=== PATIENT | male | born 1995 | race African-American/Black ===

== ENCOUNTER 2021-01-23 12:14 | Observation (INO) | payer MEDICARE, OTHER, MEDICAID ==
[~2021-01-23] VITALS: Wt 64.0 kg
[2021-01-23 12:30] LABS: HEMATOCRIT 42.6 % (42.0-52.0); HEMOGLOBIN 13.9 g/dl (13.5-18.0); MEAN CELL VOLUME 96 fl (80.0-100.0); MEAN CORPUSCULAR HEMOGLOBIN 31 pg (27.0-31.0); MEAN CORPUSCULAR HGB CONC 33 g/dl (33.0-37.0); MEAN PLATELET VOLUME 13.9 fl (7.4-10.4); PLATELET COUNT 204 K/mm3 (130-400); RED BLOOD COUNT 4.44 M/mm3 (4.20-5.60)
[2021-01-23 12:50] LABS: ALBUMIN 4.6 gm/dL (3.5-5.0); BILIRUBIN,TOTAL 0.2 mg/dL (0.2-1.2); C-REACTIVE PROTEIN 0.07 mg/dL (0.00-0.50); CALCIUM 9.7 mg/dL (8.4-10.2); CREATININE, serum 1.23 mg/dL (0.72-1.25); POTASSIUM 4.1 mmol/L (3.5-4.5); TOTAL PROTEIN 8.5 gm/dL (6.2-8.1)
[2021-01-23 12:51] LABS: COLLECTION METHOD CLEAN CATCH
[2021-01-23 13:00] LABS: PLATELET ESTIMATE NORMAL (NORMAL)
[2021-01-23 13:02] LABS: LYMPHOCYTE 7 % (20.0-51.0); NEUTROPHILS 85 % (42.0-75.2)
[2021-01-23 13:04] LABS: MUCOUS Present /lpf; PH 5 (5-8); SQUAMOUS EPITHELIAL None Seen /hpf; URINE APPEARANCE Hazy; URINE BACTERIA Rare /hpf; URINE BILIRUBIN Negative (NEGATIVE); URINE BLOOD 2+ (NEGATIVE); URINE COLOR Straw; URINE GLUCOSE Negative (NEGATIVE); URINE KETONE Negative (NEGATIVE); URINE LEUKOCYTE ESTERASE Negative (NEGATIVE); URINE NITRATE Negative (NEGATIVE); URINE PROTEIN(semi-quant) 2+ (NEGATIVE); URINE UROBILINOGEN Negative (NEGATIVE)
[2021-01-23 13:05] LABS: TRICYCLIC ANTIDEPRESS URINE NEGATIVE
[2021-01-23 13:11] LABS: PROLACTIN 89.2 ng/mL (3.46-19.40)
[2021-01-23] MEDS ORDERED: TRILEPTAL SU60 MG/ML PO ×3 (15:31→21:47)
[2021-01-23] MEDS ORDERED: ONFI2.5 MG/ML PO ×2 (15:31→19:52)
[2021-01-23] MEDS ORDERED: KEPPRA SUSP100 MG/ML PO ×2 (15:32→21:43)
[2021-01-23] MEDS ORDERED: NIZORAL CR 30GM TOP (15:34)
[2021-01-23] MEDS ORDERED: LOPROX TOP (15:34)
[2021-01-23] MEDS ORDERED: DEPAKENE250 MG PO ×3 (15:35→15:36)
[2021-01-23] MEDS ORDERED: KLONOPIN WAFERS1 MG PO ×2 (15:37→19:53)
[2021-01-23 19:05] VITALS: BP 125/94; PULSE 101; TEMP 99.4
[2021-01-23] MEDS ORDERED: DEPAKENE 250 MG/1 ML PO ×3 (19:49→19:50)
--- NOTE | 2021-01-23 21:09 | NUR ---
Report received from day shift nurse around 1900. PIECE DYE WORKER staff was sitting with patient due to patient getting up and moving around. Unable to redirect. Patient non-verbal. Dr. Collins in to see patient. Dr. Collins able to get medications list, and updated in med rec. Wanted to restart all home medications, but unsure about substitutions. JOÃO Bai notified, and stated she would look at list and call pharmacy. Patient has INT to right forearm, and left forearm. IV fluids started per orders. Patient resting in bed with call light within reach at this time. LS CTA. HRR. Telemetry in place. Capillary refill less than 3 seconds. Non-tenting skin turgor. BSAx4. Abdomen soft, flat. Patient incontinent of bowel. Has indwelling lang catheter with clear yellow urine output. No edema. In bed with call light within reach. Bed alarm on. Seizure precautions in place. Spoke with Fabi from the [facility], and is working on trying to get staff member to sit with patient. At this time, [facility] PCT is sitting with patient for safety.
[2021-01-24 00:06] VITALS: BP 130/71; PULSE 120; TEMP 99.7
[2021-01-24 04:09] VITALS: BP 128/64; PULSE 110; TEMP 99.1
--- NOTE | 2021-01-24 05:43 | NUR ---
Patient's medications mixed with milk shake ([facility] stated this is how he takes his medications). Patient drank some, but not all of milk shake. Unsure how much medication patient took. Patient has been resting in bed. Call light within reach. Seizure precautions in place. Bed alarm on. Indwelling lang catheter present, draining clear yellow urine. Incontinent of bowel, cares provided.
[2021-01-24 06:49] LABS: BASO % 0.3 % (0.0-2.0); GRAN # 9.4 K/mm3 (1.4-6.5); GRAN % 80.5 % (42.2-75.2); HEMOGLOBIN 12.3 g/dl (13.5-18.0); LYMPH % 8.7 % (20.0-51.0); MEAN CELL VOLUME 92 fl (80.0-100.0); MEAN CORPUSCULAR HEMOGLOBIN 32 pg (27.0-31.0); MEAN CORPUSCULAR HGB CONC 35 g/dl (33.0-37.0); MONO # 1.2 K/mm3 (0.1-0.6); MONO % 10.2 % (1.7-9.3); PLATELET COUNT 128 K/mm3 (130-400); RED BLOOD COUNT 3.87 M/mm3 (4.20-5.60); REDCELL DISTRIBUTION WIDTH-CV 13.1 % (11.5-14.5)
[2021-01-24 06:57] LABS: HEMATOCRIT 35.5 % (42.0-52.0)
[2021-01-24 07:10] LABS: ALBUMIN 3.7 gm/dL (3.5-5.0); CALCIUM 9.2 mg/dL (8.4-10.2); CREATININE, serum 0.99 mg/dL (0.72-1.25); MAGNESIUM 1.8 mg/dL (1.6-2.6); PHOSPHOROUS 3.1 mg/dL (2.3-4.7); POTASSIUM 3.8 mmol/L (3.5-4.5)
[2021-01-24 07:58] VITALS: BP 118/74; PULSE 91; TEMP 97.7; TEMP 99
[2021-01-24 11:55] VITALS: BP 123/66; PULSE 98; TEMP 99
[2021-01-24 16:00] VITALS: BP 122/70; PULSE 73; TEMP 98
[2021-01-24 20:46] VITALS: BP 134/73; PULSE 86; TEMP 98.2
--- NOTE | 2021-01-24 21:24 | NUR ---
Norma, co-gaurdian for patient called for update. Voiced understanding that update couldn't be given at that time due to not being listed as a co-guardian on chart, and that she did not have the patient's pin number. Called Melyssa, listed as garjdian on chart. Updated on patient, as she had not been called and updated at all since hospitalization. Verrified that Norma is co-guardian, and ok with her receiving updates as well. Stated that she would call and update Norma. Questions answered. Requested that [facility] send copy of DPOA/Guardianship paperwork. Norma: [phone] Melyssa: [phone]
--- NOTE | 2021-01-24 21:55 | NUR ---
Patient assessed. Peripheral IV to right forearm, with fluids running per orders. Refused to take oral medications. Received IV medications per orders. Telemetry in place: sinus dysrhythmia. LS CTA. No edema. High fall risk precautions in place. Food and fluids encouraged. In bed with call light within reach. Bed alarm on.
--- NOTE | 2021-01-24 22:35 | NUR ---
Spoke to JOÃO Bai regarding lang catheter. Patient up moving around. Has started to pull at lang catheter. Ok to D/C lang. Taken out at this time. Perineal hygiene care provided before and after removal.
[2021-01-25 00:20] VITALS: BP 122/75; PULSE 53; TEMP 99.4
--- NOTE | 2021-01-25 05:37 | NUR ---
Patient had been up most of shift. Seems to be resting at this time: in bed with eyes closed, respirations even and unlabored. Continues on IV fluids as ordered. Did stop fluids for short time when patient kept pulling on tubing. JOÃO Bai had been notified. High fall risk precautions in place. Bed alarm on.
--- NOTE | 2021-01-25 06:30 | NUR ---
PT IS FROM A CORRECTION, WITH A HISTORY OF SIEZURES. THIS PATIENT HAS BEEN VERBAL WITH SOME WORDS, AND ABLE TO ADDRESS IMMEDIATE NEEDS. PT IS CURRENTLY NPO FOR MRI THAT IS PLANNED FOR 1429 WITH SEDATION.
[2021-01-25 06:39] LABS: BASO % 0.6 % (0.0-2.0); GRAN # 4.8 K/mm3 (1.4-6.5); GRAN % 67.8 % (42.2-75.2); HEMATOCRIT 37.7 % (42.0-52.0); HEMOGLOBIN 12.7 g/dl (13.5-18.0); LYMPH # 1.6 K/mm3 (1.2-3.4); LYMPH % 21.9 % (20.0-51.0); MEAN CELL VOLUME 94 fl (80.0-100.0); MEAN CORPUSCULAR HEMOGLOBIN 32 pg (27.0-31.0); MEAN CORPUSCULAR HGB CONC 34 g/dl (33.0-37.0); MEAN PLATELET VOLUME 13.8 fl (7.4-10.4); MONO # 0.7 K/mm3 (0.1-0.6); MONO % 9.6 % (1.7-9.3); PLATELET COUNT 125 K/mm3 (130-400); RED BLOOD COUNT 4.02 M/mm3 (4.20-5.60); REDCELL DISTRIBUTION WIDTH-CV 13.2 % (11.5-14.5)
[2021-01-25 07:08] LABS: ALBUMIN 3.7 gm/dL (3.5-5.0); CALCIUM 9.6 mg/dL (8.4-10.2); CREATININE, serum 0.85 mg/dL (0.72-1.25); MAGNESIUM 1.6 mg/dL (1.6-2.6); PHOSPHOROUS 3.3 mg/dL (2.3-4.7); POTASSIUM 4.2 mmol/L (3.5-4.5)
[2021-01-25 07:40] VITALS: BP 114/62; PULSE 68; TEMP 97.3
[2021-01-25 12:36] VITALS: BP 135/85; PULSE 90; TEMP 97.5
--- NOTE | 2021-01-25 12:38 | NUR ---
SPOKE WITH RN AND PATIENT IS HAVING AN SEDATIVE MRI TODAY AT 0215 AND IT WAS ALSO THE ONLY AVALIABLE TIME FOR THE EEG. WILL PERFORM EEG TOMORROW, RN NOTIFIED.
--- NOTE | 2021-01-25 14:17 | NUR ---
It Intern contacted patient's sister/Guardian, Melyssa (ph#[phone]) to complete intake as patient is mostly non verbal. Melyssa advised she and her sister, Norma (ph#[phone]) are co-guardians for patient who lives in a [facility] half-way here in [place]. Melyssa advised they are from [place] and patient was in a half-way in [place] until the agency he was with shut down their residential services. Melyssa reported that [place] was the closest location that had Residential openings so they moved patient to [place] in December. Melyssa advised [facility] is working on setting up patient with a local primary care physician. Patient has medications administered to him by [facility] staff and also receives assistance with all ADLs. Melyssa denies any DME usage. Plan is for patient to return to [facility] upon discharge. BERNARDO contacted patient's rehabilitation case coordinator, Emily Galarza (ph#[phone]) to provide update. Emily advised she will email patient's guardianship documents to BERNARDO. BERNARDO then contacted Debby [facility] Campground Manager (ph#[phone], fax#[phone]) and faxed clinical updates. BERNARDO advised Debby that patient may be ready for discharge tomorrow. Discharge Plan: [facility]
--- NOTE | 2021-01-25 16:07 | NUR ---
PT HAS HAD UNEVENTFUL DAY. REMAINED NPO UNTIL HE HAD HIS MRI. RESULTS ARE IN AND PROVIDER NOTIFIED. PT IS NOW EATING, AND SITTING UP IN BED. REMAINS MOSTLY NON-VERBAL, BUT DOES USE ONE WORD SENTENCES.
[2021-01-25 16:30] VITALS: BP 140/67; PULSE 56; TEMP 97.8
--- NOTE | 2021-01-25 16:51 | NUR ---
AFTER PATIENT RETURNED FROM CT, THE PATIENT WAS SLIGHTLY NAUSEATED. THE PATIENT ATE SOME PUDDING AND DRANK SOME APPLE JUICE AND FELT MUCH BETTER.
[2021-01-25 19:24] VITALS: BP 115/71; PULSE 54
[2021-01-25 22:23] VITALS: BP 114/71; PULSE 77
--- NOTE | 2021-01-26 00:33 | NUR ---
Received report from JENN Patel. Patient resting in bed quietly. No acute distress noted. Call light in reach. Bed alarms on. Seizure precaution maintained. Will continue to monitor.
[2021-01-26 04:37] VITALS: BP 118/52; PULSE 57
--- NOTE | 2021-01-26 06:32 | NUR ---
Right forearm IV site infiltrated around 2 am. Removed IV from right forerarm. Patient refusing IV insertion. Patient also has been refusing heparin sub-q injection last night. Patient has been pushing away nurse hands and refusing any needle insertion. Called JOÃO Bai and updated. Per JOÃO Bai, let him rest for now and try to put IV in the day time.
--- NOTE | 2021-01-26 06:35 | NUR ---
Pt. progressing w/ plan of care. Pt. resting in bed w/ eyes closed. Call light and belongings in reach, bed alarm on.
[2021-01-26 07:13] LABS: BASO % 0.5 % (0.0-2.0); EOS % 0.3 % (0-4.0); GRAN # 3.8 K/mm3 (1.4-6.5); GRAN % 65.5 % (42.2-75.2); HEMATOCRIT 37.8 % (42.0-52.0); HEMOGLOBIN 13.2 g/dl (13.5-18.0); LYMPH # 1.4 K/mm3 (1.2-3.4); MEAN CELL VOLUME 92 fl (80.0-100.0); MEAN CORPUSCULAR HEMOGLOBIN 32 pg (27.0-31.0); MEAN CORPUSCULAR HGB CONC 35 g/dl (33.0-37.0); MEAN PLATELET VOLUME 14.1 fl (7.4-10.4); MONO # 0.6 K/mm3 (0.1-0.6); MONO % 9.5 % (1.7-9.3); PLATELET COUNT 131 K/mm3 (130-400); RED BLOOD COUNT 4.11 M/mm3 (4.20-5.60)
[2021-01-26 07:31] LABS: CALCIUM 9.7 mg/dL (8.4-10.2); CREATININE, serum 0.85 mg/dL (0.72-1.25); MAGNESIUM 1.7 mg/dL (1.6-2.6); POTASSIUM 3.9 mmol/L (3.5-4.5)
[2021-01-26 08:00] VITALS: BP 116/62; PULSE 99; TEMP 98
--- NOTE | 2021-01-26 09:55 | NUR ---
Pt. progressing w/ plan of care. Pt. refused PO medications this AM, pt. was getting EEG this past hour. Plan to replace peripheral IV today, last night pt. lost IV access. Pt. is pleasant and interactive this AM. Unable to assess orientation due to pt.'s lack of speaking.
--- NOTE | 2021-01-26 10:32 | NUR ---
Patient moving through out entire EEG, having head off pillow, moving side to side and talking.
[2021-01-26] MEDS ORDERED: MUCINEX DM 60 M1 TER PO (10:52)
[2021-01-26] MEDS ORDERED: LORAINT PO (10:53)
--- NOTE | 2021-01-26 11:36 | NUR ---
This RN attempted again to get pt. to take his medications, playing music he likes per reccomendations of rrt Fabi on the telephone. Pt. still was not willing to take his medications, pushing this RN's arm away when handing them to the patient. JOÃO Mejía made aware. Cutlery Grinder Fabi reports she plans to come see the patient today, will reattempt to administer pt.'s medications when she comes to visit. Pt. resting in bed comfortably at this time, no s/s distress. Seizure precautions remain in place, bed alarm on.
[2021-01-26 12:00] VITALS: BP 120/65; PULSE 95; TEMP 97.9
--- NOTE | 2021-01-26 15:00 | NUR ---
[facility]. Pt.'s tele removed, IV was removed last night on the sample tailor. Pt. picked up and wheeled out of the hospital using wheelchair w/ penitentiary staff member. Discharge paperwork provided.
--- NOTE | 2021-01-26 15:09 | NUR ---
Patient is ready to discharge back to [facility] today. BERNARDO notified Debby, Director Of Business Development and faxed discharge orders. Debby advised that patient would be picked up this afternoon. BERNARDO contacted patient's Guardian, Melyssa to notify her of discharge. Melyssa requested a phone call from patient's RN, Luna. BERNARDO followed up with Luna who advised she would call. BERNARDO followed up with Debby on who they would like to set patient up with for primary care. Debby advised they would like to set patient up with Dr. Oneal. Icebox ManShalini advised she called Dr. Oneal's office and they are not taking new patients. BERNARDO followed up again with Debby who advised she would try to have the medical coordinator at [facility], Fabi give BERNARDO a call. BERNARDO updated Shalini equal opportunity officer. Patient discharged before appointment could be secured. Discharge Plan: [facility]
--- NOTE | 2021-01-28 11:54 | NUR ---
RM has made 2 attempts to contacted reported DPOA - Sister,Norma Sarkar [phone]. I have left messages to call me and contact information was provided. Yenni Quesada MSN, DIRECTOR DIGITAL ADVERTISING- Inventory Checker
[2021-01-30 10:10] LABS: TRILEPTAL <1 mcg/mL (10 - 35)
== END 2021-01-26 15:00 | disposition home or self-care (01) ==
LOC: COL.ER 12:14 → EDBD 12:15 → MEDICAL 14:38
PROVIDERS: Family Medicine; Physician Assistant; Psychiatry & Neurology Neurology; ADMIT Internal Medicine
DX: G40.901 Epilepsy, unspecified, not intractable, with status epilepticus (principal); D72.829 Elevated white blood cell count, unspecified; E83.42 Hypomagnesemia; I48.91 Unspecified atrial fibrillation; F89 Unspecified disorder of psychological development; Z79.899 Other long term (current) drug therapy; Z20.822 Contact with and (suspected) exposure to COVID-19
CPT/HCPCS: 99223-AI; 99232-AI; 99233-AI; 99239; A9585; G0378; J0456; J0696; J1644; J1953; J3475; J7030; J7050

== ENCOUNTER 2021-01-28 08:16 | Emergency (ER) | payer MEDICARE, OTHER ==
[~2021-01-28] VITALS: Ht 167.6 cm; Wt 59.1 kg
[~2021-01-28 08:16] MED LIST: DEPAKENE 250 MG/1 ML PO; DEPAKENE250 MG PO; KEPPRA SUSP100 MG/ML PO; KLONOPIN WAFERS1 MG PO; LOPROX TOP; LORAINT PO; MUCINEX DM 60 M1 TER PO; NIZORAL CR 30GM TOP; ONFI2.5 MG/ML PO; TRILEPTAL SU60 MG/ML PO
[2021-01-28 08:23] VITALS: TEMP 99
[2021-01-28 09:07] LABS: HEMATOCRIT 37.3 % (42.0-52.0); HEMOGLOBIN 12.7 g/dl (13.5-18.0); MEAN CELL VOLUME 90 fl (80.0-100.0); MEAN CORPUSCULAR HEMOGLOBIN 31 pg (27.0-31.0); MEAN CORPUSCULAR HGB CONC 34 g/dl (33.0-37.0); PLATELET COUNT 155 K/mm3 (130-400); RED BLOOD COUNT 4.13 M/mm3 (4.20-5.60); REDCELL DISTRIBUTION WIDTH-CV 12.9 % (11.5-14.5)
--- NOTE | 2021-01-28 09:29 | NUR ---
forestry workers met with Fabi Gay, medical intern at [facility] [phone]. Fabi states that patient moved to their facility on December 18 from [facility] in [place]. Fabi states that her workers told us last week that Dr Oneal was patient's primary care provider, however, she states that Dr Sean Platt ([place]) will remain patient's primary care provider. Worker met with patient's nurse and Dr Pastrana and provided the above information.
[2021-01-28 09:30] LABS: BAND 2 % (0-10); LYMPHOCYTE 6 % (20.0-51.0); NEUTROPHILS 86 % (42.0-75.2); PLATELET ESTIMATE NORMAL (NORMAL)
[2021-01-28 09:40] LABS: PROLACTIN 7.7 ng/mL (3.46-19.40)
[2021-01-28 09:59] LABS: ALBUMIN 4.5 gm/dL (3.5-5.0); BILIRUBIN,TOTAL 0.3 mg/dL (0.2-1.2); CREATININE, serum 0.86 mg/dL (0.72-1.25); POTASSIUM 3.9 mmol/L (3.5-4.5); TOTAL PROTEIN 7.6 gm/dL (6.2-8.1)
--- NOTE | 2021-01-28 10:16 | NUR ---
Senior Accountant receieved a message from patient's guardian, Norma who advised she was unhappy with the care patient received during his latest hospitalization and would like him to be transferred to a different hospital as he is on the way to the ED now. BERNARDO notified Yenni with Risk Management.
[2021-01-28 13:10] VITALS: BP 111/95; PULSE 87
== END 2021-01-28 13:10 | disposition home or self-care (01) ==
LOC: COL.ER 08:16
PROVIDERS: Family Medicine
DX: G40.909 Epilepsy, unspecified, not intractable, without status epilepticus (principal); J18.9 Pneumonia, unspecified organism; R41.82 Altered mental status, unspecified; Z79.899 Other long term (current) drug therapy
CPT/HCPCS: J1953

== ENCOUNTER 2021-02-17 07:00 | Observation (INO) | payer MEDICARE, OTHER ==
[~2021-02-17] VITALS: Ht 170.2 cm; Wt 59.1 kg
[2021-02-17 08:14] LABS: HEMATOCRIT 39.2 % (42.0-52.0); HEMOGLOBIN 12.7 g/dl (13.5-18.0); MEAN CELL VOLUME 96 fl (80.0-100.0); MEAN CORPUSCULAR HEMOGLOBIN 31 pg (27.0-31.0); MEAN CORPUSCULAR HGB CONC 32 g/dl (33.0-37.0); MEAN PLATELET VOLUME 12.7 fl (7.4-10.4); PLATELET COUNT 199 K/mm3 (130-400); RED BLOOD COUNT 4.09 M/mm3 (4.20-5.60); REDCELL DISTRIBUTION WIDTH-CV 13.4 % (11.5-14.5)
[2021-02-17 08:28] LABS: COLLECTION METHOD CATHETER
[2021-02-17 08:30] LABS: ALANINE AMINOTRANSFERASE 25 U/L (0-55); ALBUMIN 4.4 gm/dL (3.5-5.0); ALKALINE PHOSPHATASE 58 U/L (40-150); ANION GAP 17 mmol/L (7-16); AST,SGOT 21 U/L (5-34); BILIRUBIN,TOTAL 0.2 mg/dL (0.2-1.2); BLOOD UREA NITROGEN 7 mg/dL (9-21); CARBON DIOXIDE 17 mmol/L (22-29); CHLORIDE 104 mmol/L (98-107); CREATININE, serum 1.23 mg/dL (0.72-1.25); GLUCOSE 185 mg/dL (70-99); POTASSIUM 4.4 mmol/L (3.5-4.5); SODIUM 138 mmol/L (136-145); TOTAL PROTEIN 8.1 gm/dL (6.2-8.1)
[2021-02-17 08:40] LABS: MUCOUS Present (NOT PRESENT); PH 5 (5-8); SQUAMOUS EPITHELIAL 0-2 /hpf (0-10); URINE APPEARANCE Clear (CLEAR/HAZY); URINE BACTERIA Rare (NONE SEEN); URINE BILIRUBIN Negative (NEGATIVE); URINE BLOOD 2+ (NEGATIVE); URINE COLOR Straw (YELLOW); URINE GLUCOSE 1+ (NEGATIVE); URINE KETONE Negative (NEGATIVE); URINE LEUKOCYTE ESTERASE Negative (NEGATIVE); URINE NITRATE Negative (NEGATIVE); URINE PROTEIN(semi-quant) 1+ (NEGATIVE); URINE RBC 0-2 /hpf (0-2); URINE UROBILINOGEN Negative (NEGATIVE)
[2021-02-17 08:43] LABS: BAND 8 % (0-10); LYMPHOCYTE 2 % (20.0-51.0); MYELOCYTE 1 % (0-0); NEUTROPHILS 85 % (42.0-75.2); PLATELET ESTIMATE NORMAL (NORMAL)
[2021-02-17 08:47] LABS: VALPROIC ACID (DEPAKENE) < 12.5 ug/mL (43.5-90.5)
[2021-02-17] MEDS ORDERED: DEPAKENE250 MG PO (10:33)
--- NOTE | 2021-02-17 14:28 | NUR ---
PT ARRIVED TO ROOM, UP WANDERING ROOM WITH TECH NEXT TO HIM, PT HAS UNSTEADY GAIT, APPLE JUICE BROUGHT IN FOR PATIENT, ASSESSMENT PERFORMED, PT NONVERBAL AT THIS TIME, UNABLE TO OBTAIN MOST INFORMATION NEEDED FOR ADMISSION. SEIZURE PRECAUTIONS IN PLACE, PT HIGH FALL RISK,
[2021-02-17 16:00] VITALS: BP 124/59; PULSE 121; TEMP 97.4
--- NOTE | 2021-02-17 18:02 | NUR ---
PT HAD LARGE SOFT FORMED BM, IV MEDICATIONS GIVEN, ORDERING HOUSE TRAY FOR PT. PERICARE PERFORMED AND SHEETS CHANGED.
[2021-02-17 20:06] VITALS: BP 130/64; PULSE 69; TEMP 98.6
--- NOTE | 2021-02-17 21:30 | NUR ---
Patient is in bed with SECURITY INCIDENT HANDLER at bedside. Pt has been very active around the room and in the halls. Pt no not speaks. Denies to take food mixed with medications. Incontinent for both. A couple of changes done already for BM. Pt has tachycardia. No signs of physical pain. Seizure precautions inplace. Assessment completed. IV infusing. Pt in room in front of nursing station. Bed alarm on.
--- NOTE | 2021-02-17 22:45 | NUR ---
Patient standed up pulling his IV out while infusing medication. IV discontinue and started a new one in left forearm. Restarted infusion. Linens changed, hygiene provided.
[2021-02-18 00:24] VITALS: BP 127/60; PULSE 88; TEMP 98.5
[2021-02-18 04:21] VITALS: BP 120/67; PULSE 99; TEMP 97.9
--- NOTE | 2021-02-18 06:21 | NUR ---
PT has had active episodes where he wants to be walking around. He had a period of sleeping. Right now he is awake and walking in the room. He asked for food, sandwich provided, he did not eat it. Pt received IV medications. No seizures along the night. Report will be given to day shift RN.
[2021-02-18 07:06] LABS: BASO # 0.1 K/mm3 (0.0-0.2); BASO % 0.5 % (0.0-2.0); EOS % 0.1 % (0-4.0); GRAN # 8.8 K/mm3 (1.4-6.5); GRAN % 77.3 % (42.2-75.2); HEMATOCRIT 40.7 % (42.0-52.0); HEMOGLOBIN 13.3 g/dl (13.5-18.0); LYMPH # 1.6 K/mm3 (1.2-3.4); LYMPH % 14.3 % (20.0-51.0); MEAN CELL VOLUME 93 fl (80.0-100.0); MEAN CORPUSCULAR HEMOGLOBIN 31 pg (27.0-31.0); MEAN CORPUSCULAR HGB CONC 33 g/dl (33.0-37.0); MONO # 0.9 K/mm3 (0.1-0.6); MONO % 7.5 % (1.7-9.3); PLATELET COUNT 177 K/mm3 (130-400); RED BLOOD COUNT 4.36 M/mm3 (4.20-5.60); REDCELL DISTRIBUTION WIDTH-CV 13.2 % (11.5-14.5)
[2021-02-18 07:23] LABS: CALCIUM 10.4 mg/dL (8.4-10.2); CREATININE, serum 0.87 mg/dL (0.72-1.25); POTASSIUM 3.8 mmol/L (3.5-4.5)
[2021-02-18 08:36] VITALS: BP 100/72; PULSE 92; TEMP 98.1
--- NOTE | 2021-02-18 10:18 | NUR ---
Patient is a re-admit from 01/26. Patient is non verbal and per hospitalist is ready for dc today. Patient resides at [facility] here in [place]. Patient has no DME needs and PCP is Dr. Palomo. Hospitalist spoke with JOSSELINE Ragsdale this morning regarding the patient's care and discharge plan. Patient willretrn back to [facility] later today. SW contact the patient's protective services case worker Emily ([phone]) and notified her of discharge today. Emily reports that they have been trying to establish a family meeting with the patient's guardians for a few weeks to talk about goals of care due to the patient refusing his medications and establishing a PCP locally, but at this time have been unsuccessful. Emily reports she will send an email to facility director Debby about the patient dc today. Attempt made to contact Debby by phone ([phone]) and notify of the patient's dc today. Attempt was unsuccessful and message left.
--- NOTE | 2021-02-18 11:20 | NUR ---
PT HAS BEEN ACTIVE IN ROOM ALL MORNING. MORNING MEDICATIONS GIVEN. SHIFT ASSESSMENT COMPLETED. PT HAS HAD NO SEIZES/SEIZURE-LIKE ACTIVITY WITNESSES BY STAFF ON THIS SHIFT. DOES NOT RESPOND TO QUESTIONS. WILL CONTINUE TO MONITOR.
--- NOTE | 2021-02-18 11:32 | NUR ---
Clinical updats and discharge orders faxed to [facility]. Haven't heard back from Debby so i contacted the patient's hospice case manager Emily to inform her. She will reach out to the facility to speak with Debby directly.
[2021-02-18 12:45] VITALS: BP 135/112; PULSE 96; TEMP 98.1
--- NOTE | 2021-02-18 15:13 | NUR ---
Attempt made to contact Emily and Debby and was unsuccessful. Faxed patient's discharges orders to [facility] with the note of being ready for discharge. No phone calls were returned by the staff at [facility]. While attempting to contact Emily, a facility member showed up to grain picker the patient. No notification was given and i notified the [facility] staff member that she will have to wait a little bit due to us not knowing she was coming at this time and the patient wasn't ready. Staff member verbalized her understanding and the patient's RN notified.
== END 2021-02-18 15:13 | disposition home or self-care (01) ==
LOC: COL.ER 07:00 → MEDICAL 10:17
PROVIDERS: Personal Emergency Response Attendant; Physician Assistant; ADMIT Internal Medicine
DX: G40.911 Epilepsy, unspecified, intractable, with status epilepticus (principal); G40.909 Epilepsy, unspecified, not intractable, without status epilepticus; D72.829 Elevated white blood cell count, unspecified; Z91.19 Patient's noncompliance with other medical treatment and regimen; Z20.822 Contact with and (suspected) exposure to COVID-19; Z79.899 Other long term (current) drug therapy
CPT/HCPCS: G0378; J1650; J1953; J7030

== ENCOUNTER 2021-03-26 12:06 | Emergency (ER) | payer MEDICARE, OTHER ==
[~2021-03-26] VITALS: Ht 165.1 cm; Wt 50.0 kg
[2021-03-26 12:07] VITALS: TEMP 98.9
[2021-03-26 13:30] LABS: BASO % 0.2 % (0.0-2.0); EOS % 0.1 % (0.0-4.0); GRAN # 9.4 K/mm3 (1.4-6.5); HEMATOCRIT 43.3 % (42.0-52.0); HEMOGLOBIN 14.2 g/dl (13.5-18.0); LYMPH # 0.8 K/mm3 (1.2-3.4); LYMPH % 7.2 % (20.0-51.0); MEAN CELL VOLUME 95 fl (80.0-100.0); MEAN CORPUSCULAR HEMOGLOBIN 31 pg (27-31); MEAN CORPUSCULAR HGB CONC 33 g/dl (33.0-37.0); MEAN PLATELET VOLUME 13.9 fl (7.4-10.4); MONO # 0.4 K/mm3 (0.1-0.6); MONO % 3.9 % (1.7-9.3); PLATELET COUNT 164 K/mm3 (130-400); RED BLOOD COUNT 4.58 M/mm3 (4.20-5.60); REDCELL DISTRIBUTION WIDTH-CV 13.2 % (11.5-14.5)
[2021-03-26 13:46] LABS: ALANINE AMINOTRANSFERASE 25 U/L (0-55); ALBUMIN 4.5 gm/dL (3.5-5.0); ALKALINE PHOSPHATASE 67 U/L (40-150); ANION GAP 28 mmol/L (7-16); AST,SGOT 27 U/L (5-34); BILIRUBIN,TOTAL 0.2 mg/dL (0.2-1.2); BLOOD UREA NITROGEN 6 mg/dL (9-21); CHLORIDE 104 mmol/L (98-107); GLUCOSE 173 mg/dL (70-99); POTASSIUM 4.7 mmol/L (3.5-4.5); SODIUM 140 mmol/L (136-145); TOTAL PROTEIN 8.5 gm/dL (6.2-8.1)
[2021-03-26 14:06] LABS: ALCOHOL(ethanol),MEDICAL < 10 mg/dL (0-10)
[2021-03-26 14:07] LABS: CARBON DIOXIDE 8 mmol/L (22-29)
[2021-03-26 17:07] VITALS: BP 103/85; PULSE 112
== END 2021-03-26 17:07 | disposition home or self-care (01) ==
LOC: COL.ER 12:06
PROVIDERS: Emergency Medicine
DX: G40.909 Epilepsy, unspecified, not intractable, without status epilepticus (principal); R79.0 Abnormal level of blood mineral; Z79.899 Other long term (current) drug therapy
CPT/HCPCS: J1953; J7030

== ENCOUNTER 2021-03-29 13:43 | Emergency (ER) | payer MEDICARE, OTHER ==
[~2021-03-29] VITALS: Ht 165.1 cm; Wt 50.0 kg
[2021-03-29 13:58] VITALS: BP 116/92; TEMP 98.1
[2021-03-29 15:05] VITALS: PULSE 86
== END 2021-03-29 15:10 | disposition home or self-care (01) ==
LOC: COL.ER 13:43
DX: U07.1 COVID-19 (principal); G40.909 Epilepsy, unspecified, not intractable, without status epilepticus; Z79.899 Other long term (current) drug therapy

== ENCOUNTER 2021-04-08 03:48 | Emergency (ER) | payer MEDICARE, OTHER ==
[~2021-04-08] VITALS: Ht 177.8 cm; Wt 59.1 kg
[2021-04-08 03:51] VITALS: TEMP 98.8
[2021-04-08 04:13] LABS: HEMATOCRIT 44.1 % (42.0-52.0); MEAN CELL VOLUME 105 fl (80.0-100.0); MEAN CORPUSCULAR HEMOGLOBIN 31 pg (27-31); MEAN CORPUSCULAR HGB CONC 30 g/dl (33.0-37.0); MEAN PLATELET VOLUME 13.8 fl (7.4-10.4); PLATELET COUNT 255 K/mm3 (130-400); REDCELL DISTRIBUTION WIDTH-CV 13.4 % (11.5-14.5)
[2021-04-08 04:23] LABS: ALANINE AMINOTRANSFERASE 18 U/L (0-55); ALBUMIN 4.4 gm/dL (3.5-5.0); ALKALINE PHOSPHATASE 54 U/L (40-150); AST,SGOT 20 U/L (5-34); BILIRUBIN,TOTAL 0.3 mg/dL (0.2-1.2); BLOOD UREA NITROGEN 7 mg/dL (9-21); CALCIUM 10.1 mg/dL (8.4-10.2); CHLORIDE 106 mmol/L (98-107); CREATININE, serum 1.13 mg/dL (0.72-1.25); GLUCOSE 184 mg/dL (70-99); POTASSIUM 3.4 mmol/L (3.5-4.5); SODIUM 145 mmol/L (136-145); TOTAL PROTEIN 7.9 gm/dL (6.2-8.1)
[2021-04-08 04:43] LABS: CARBON DIOXIDE < 5 mmol/L (22-29)
[2021-04-08 04:55] LABS: BAND 1 % (0-10)
[2021-04-08 04:56] LABS: HYPOCHROMIA 2+; LYMPHOCYTE 39 % (20.0-51.0); NEUTROPHILS 56 % (42.0-75.2); PLATELET ESTIMATE NORMAL (NORMAL)
[2021-04-08 07:52] VITALS: BP 125/77; PULSE 90
[2021-04-09] MEDS ORDERED: ONFI2.5 MG/ML PO (23:43)
[2021-04-09] MEDS ORDERED: KEPPRA SUSP100 MG/ML PO (23:43)
[2021-04-09] MEDS ORDERED: LORAINT PO (23:44)
[2021-04-09] MEDS ORDERED: DEPAKENE 250 MG/1 ML PO ×3 (23:46→23:47)
[2021-04-09] MEDS ORDERED: TRILEPTAL SU60 MG/ML PO ×2 (23:47→23:48)
== END 2021-04-08 09:04 | disposition home or self-care (01) ==
LOC: COL.ER 03:48
PROVIDERS: Family Medicine
DX: G40.909 Epilepsy, unspecified, not intractable, without status epilepticus (principal); E86.0 Dehydration; Z91.14 Patient's other noncompliance with medication regimen; Z79.899 Other long term (current) drug therapy
CPT/HCPCS: J1953; J2060; J3480; J7030; J7120

== ENCOUNTER 2021-04-09 20:22 | Inpatient (IN) | payer MEDICARE, OTHER ==
[~2021-04-09] VITALS: Ht 165.1 cm; Wt 55.8 kg
[2021-04-09 21:08] LABS: HEMATOCRIT 38.3 % (42.0-52.0); HEMOGLOBIN 12.2 g/dl (13.5-18.0); MEAN CORPUSCULAR HEMOGLOBIN 30 pg (27-31); MEAN CORPUSCULAR HGB CONC 32 g/dl (33.0-37.0); MEAN PLATELET VOLUME 13.1 fl (7.4-10.4); PLATELET COUNT 183 K/mm3 (130-400); RED BLOOD COUNT 4.05 M/mm3 (4.20-5.60); REDCELL DISTRIBUTION WIDTH-CV 13.5 % (11.5-14.5)
[2021-04-09 21:09] LABS: MEAN CELL VOLUME 95 fl (80.0-100.0)
[2021-04-09 21:24] LABS: BILIRUBIN,TOTAL 0.2 mg/dL (0.2-1.2); CALCIUM 9.1 mg/dL (8.4-10.2); CREATININE, serum 0.94 mg/dL (0.72-1.25); POTASSIUM 4.3 mmol/L (3.5-4.5); TOTAL PROTEIN 7.6 gm/dL (6.2-8.1)
[2021-04-09 21:41] LABS: BAND 1 % (0-10); BASOPHIL 1 % (0-2); LYMPHOCYTE 12 % (20.0-51.0); METAMYELOCYTE 1 % (0-0); NEUTROPHILS 80 % (42.0-75.2); PLATELET ESTIMATE NORMAL (NORMAL)
[2021-04-09] MEDS ORDERED: ONFI2.5 MG/ML PO (23:43)
[2021-04-09] MEDS ORDERED: KEPPRA SUSP100 MG/ML PO (23:43)
[2021-04-09] MEDS ORDERED: LORAINT PO (23:44)
[2021-04-09] MEDS ORDERED: DEPAKENE 250 MG/1 ML PO ×3 (23:46→23:47)
[2021-04-09] MEDS ORDERED: TRILEPTAL SU60 MG/ML PO ×2 (23:47→23:48)
--- NOTE | 2021-04-10 00:50 | NUR ---
Patient arrived to the unit by bed, not alert, non verbal baseline. NS started at 100 ml/hr. Hygiene provided. SCDs applied. Seizures and aspirations precautins. Asssessment completed. IV medications started. No further needs at this time. Continue monitoring.
[2021-04-10 00:59] VITALS: BP 121/55; PULSE 91; TEMP 97.7
--- NOTE | 2021-04-10 01:47 | NUR ---
Patient unable to provide information. The ED did not received any other history or medications information. Unable to reach [facility] halfway.
[2021-04-10 04:31] VITALS: BP 122/68; PULSE 81; TEMP 98.1
--- NOTE | 2021-04-10 06:58 | NUR ---
Pt has been sleeping since he arrived to the unit. Continue receiving NS at 100 ml/hr. He moves in bed. Shift report will be given to day RN.
[2021-04-10 07:50] VITALS: BP 114/87; PULSE 99; TEMP 98.6
--- NOTE | 2021-04-10 08:00 | NUR ---
PT ALERT, NON-VERBAL. TROUBLE WITH COMMUNICATING ORIENTATION. NEURO CHECK PERFORMED TO BEST OF ABILITY. PT HAS CLEAR LUNGS, S1,S2 AUSCULTATED. SKIN WITHIN DEFINED LIMITS, BED BATH PROVIDED, PERICARE AND DEPEND CHANGED D/T ICONTINENCE OF URINE. PT RESTLESS, ATTEMPTING TO GET OUT OF BED. PT BED ALARM SET.
--- NOTE | 2021-04-10 09:00 | NUR ---
PT ATTEMPTING TO GET OUT OF BED, MOVED TO ROOM CLOSER TO NURSES STATION FOR PT SAFETY.
[2021-04-10 10:16] LABS: ALBUMIN 3.9 gm/dL (3.5-5.0); BILIRUBIN,TOTAL 0.4 mg/dL (0.2-1.2); CREATININE, serum 0.79 mg/dL (0.72-1.25); POTASSIUM 4.6 mmol/L (3.5-4.5); TOTAL PROTEIN 7.2 gm/dL (6.2-8.1)
--- NOTE | 2021-04-10 11:12 | NUR ---
SW completed intake with patient's guardian/RODERICKA Melyssa Webb [phone]. Guardian provides that patient lives at [facility] and obtains total care for needs. PCP is Dr. Platt and phamacy is [facility] she believes. Guardian states that patient's plan is to return to [facility] upon DC. Guardian did not have any current questions or concerns at this time. SW will continue to follow. DC plan: [facility]
--- NOTE | 2021-04-10 11:57 | NUR ---
CONTACTED [facility] FROM [facility] TO HAVE PAPERWORK BROUGHT OVER FOR MEDICATION RECONCILIATION AND INTAKE INFORMATION.
[2021-04-10 12:29] VITALS: BP 107/74; PULSE 106; TEMP 98.6
[2021-04-10] MEDS ORDERED: NIZORAL CREAM15 GM TP (14:38)
[2021-04-10] MEDS ORDERED: CICLOPIROX TOP (14:42)
[2021-04-10 15:06] VITALS: BP 119/69; PULSE 78; TEMP 98.3
--- NOTE | 2021-04-10 18:13 | NUR ---
PT CONTINUES ON PLAN OF CARE. NEURO CHECKS CHANGED FROM Q2HR TO Q4HR, COMPLETED ORDERED. NO SIGNIFICANT CHANGES NOTED IN ASSESSMENT. PT PULLED IVX2 OUT AND NEEDED NEW PLACEMENT THIS SHIFT. PT ABLE TO EAT DINNER, EXPRESSES NEEDS WITH ONE WORD PHRASES INTERMITTENTLY. INCONTINENT OF URINE, CLEANED AND CHECKED THROUGHOUT SHIFT. ABLE TO SIT IN CHAIR THIS SHIFT. CALL LIGHT WITHIN REACH, BED ALARM ON.
[2021-04-10 20:00] VITALS: BP 162/76; PULSE 78; TEMP 98.5
--- NOTE | 2021-04-10 23:10 | NUR ---
PT HAS BEEN SLEEPING SINCE 2029. @ 1999, PT WAS ALERT ET LEAVING BED TO WALK AROUND ROOM WITH ASSISTANCE. PT'S GAIT VERY UNSTEADY. ATTEMPTS MADE TO WAKEN PT @ THIS TIME TO GIVE PO MEDICATIONS. PT GRUNTS ET BRIEFLY AWAKENS TO SCRATCH NECK THEN IMMEDIATELY RETURNS TO SLEEP. PT DOES NOT APPEAR TO BE HAVING A SEIZURE, PT DOES NOT MOVE, FIGHTS TO SHUT EYES WHEN OPENED BY THIS NURSE. Cuauhtemoc TOMAS APRN NOTIFIED, NO NEW ORDERS. MEDICATION TRILEPTAL IS WASTED.
[2021-04-11] VITALS (7 sets, daily range): BP systolic 109–123; BP diastolic 52–69; PULSE 68–104; TEMP 97.9–98.4
--- NOTE | 2021-04-11 00:33 | NUR ---
PT CONTINUES TO SLEEP, IS INCONTINENT OF URINE. LINENS ET GOWN CHANGED WITH 2 ASSIST. PT DOES MOVE ALL 4 EXTREMITIES BUT WILL NOT OPEN EYES, GROANS ET SCRATCHES HIS CHEST. PT COVERS SELF ET HIS HEAD WITH BLANKETS IN BED. BED ALARM ON. RESPIRATIONS UNLABORED. CALL LIGHT WITHIN REACH.
--- NOTE | 2021-04-11 04:51 | NUR ---
PT IS SLEEPING IN BED, IS SEEN OCCASIONALLY REPOSTIONING SELF. RESPIRATIONS UNLABORED. BED ALARM ON. CALL LIGHT WITHIN REACH.
--- NOTE | 2021-04-11 06:07 | NUR ---
PT IS INCONTINENT OF URINE, AWAKE NOW WITH EYES OPEN. BRIEFS CHANGED ET PERICARE COMPLETED.
--- NOTE | 2021-04-11 08:00 | NUR ---
PATIENT IS ALERT BUT CONFUSED AT BASELINE. PATIENT HAS SEVERE MR AND LIVES IN A ASSISTED. HE IS MOSTLY NON-VERBAL BUT DOES REPEAT WORDS. VSS. PATIENT APPEARS TO BE CONFORTABLE AND VERBALIZING HE IS HUNGRY. BREAKFAST TRAY ORDERED. AERIAL PLANTING AND CULTIVATION MANAGER REPORTS PATIENT HAS BEEN REFUSING ORAL PILLS. CRUSHED MEDS AND PLACED IN ICE CREAM, PATIENT ATE EVERY DROP ON HIS OWN. IV FLUIDS INFUSING INTO LEFT FORARM VIA PUMP. DURING HIS STAY, PATIENT HAS PULLED OUT SEVERAL IV SITES. IV SITE WITH ACEWRAP INPLACE. PATIENT UP IN CHAIR WITH ALARM. PATIENT IS VISUALIZED FROM DESK. HEAD TO TOE ASSESSMENT COMPLETE. CARTOONS ON TV. NO OTHER NEEDS AT THIS TIME. CALL LIGHT IN REACH.
[2021-04-11 09:16] LABS: ALBUMIN 3.8 gm/dL (3.5-5.0); BILIRUBIN,TOTAL 0.3 mg/dL (0.2-1.2); CALCIUM 9.7 mg/dL (8.4-10.2); CREATININE, serum 0.83 mg/dL (0.72-1.25); POTASSIUM 4.4 mmol/L (3.5-4.5); TOTAL PROTEIN 7.1 gm/dL (6.2-8.1)
--- NOTE | 2021-04-11 22:42 | NUR ---
PT SLEEPING IN BED ET HAS BEEN ON ET OFF SINCE 193. RESPIRATIONS UNLABORED. BED ALARM IS ON. OCCASIONALLY SEEN SCRATCHING HIS NECK OR INTERMITTENTLY COUGHING A DRY COUGH. NO SEIZURE ACTIVITY NOTED. PT REFUSED PO TRILEPTAL. PILLS WERE CRUSHED ET PLACED IN ICE CREAM, PT REFUSED ICE CREAM, PUSHED THIS NURSE'S ARM AWAY ET CLOSED HIS EYES WHEN I OFFERED IT TO HIM. Cuauhtemoc COLE APRN NOTIFIED, NO NEW ORDERS.
[2021-04-12 04:43] VITALS: BP 117/65; PULSE 66; TEMP 98.4
--- NOTE | 2021-04-12 06:06 | NUR ---
PT HAS SLEPT THROUGH NIGHT ET CONTINUES TO BE ASLEEP @ THIS TIME. HAS BEEN INCONTINENT OF URINE X3. PT IS SEEN REPOSITIONING SELF IN BED OCCASIONALLY. RESPIRATIONS UNLABORED. BED ALARM IS ON. CALL LIGHT WITHIN REACH.
[2021-04-12 07:42] VITALS: BP 130/68; PULSE 89
--- NOTE | 2021-04-12 08:00 | NUR ---
PATIENT IS ALERT BUT CONFUSED AT BASELING. PATIENT HAS MR AND LIVES IN A [facility]. PATIENT SEEMS VERY HAPPY THIS AM AND IS DANCING/ROCKING TO MUSIC ON THE TV. PATIENT CAN SAY ONLY A FEW WORDS AND/OR WILL REPEAT WORDS NURSING SAYS. VSS. PT TOOK PATIENT FOR A WALK IN THE HALLS TODAY, 2 ASSIST. SEIZURE PRECAUTIONS INPLACE, NO SEIZURE ACTIVITY SINCE ADMISSION TO HOSPITAL. CRUSH AM MEDS AND GAVE IN ICE CREAM, TOLERATED WELL. HEAD TO TOE ASSESSMENT COMPLETE. BREAKFAST TRAY ORDERED. IV FLUIDS INFUSING INTO LEFT FORARM IV. NO OTHER NEEDS AT THIS TIME. CALL LIGHT IN REACH. BED ALARM ON.
[2021-04-12 11:28] VITALS: BP 139/58; PULSE 92
--- NOTE | 2021-04-12 11:39 | NUR ---
The hospitalist notified BERNARDO she is ready to discharge the patient today. BERNARDO notified the patient's foster care case manager, Emily (ph#[phone]). Emily reports that she is working from home today, but will reach out to their machine programmer to get transportation set up. BERNARDO contacted and updated the patient's sister, Melyssa. Melyssa is in agreement to the plan. She requested that BERNARDO contact her back with a transport time. BERNARDO read the IM form outloud to Melyssa. Melyssa verbalized understanding and gave BERNARDO approval to sign the form on her behalf. The patient is to discharge today, 04/12, back to [facility]. Transportation provided by [facility]. SW to notify the patient's sister of a transport time, once scheduled. No additional needs at this time.
--- NOTE | 2021-04-12 14:00 | NUR ---
PATIENT DISCHARGING BACK TO [facility], STAFF HERE TO GET HIM. INFO PACKET FAXED. IV SITE DC'D, COVERED SITE WITH [employer]. PATIENT IS DRESSED AND ESCORTED OUT VIA WC. PATIENT DISCHARGED.
== END 2021-04-12 14:00 | disposition home or self-care (01) | DRG 101 ==
LOC: COL.ER 20:22 → SURG 22:59
PROVIDERS: Student in an Organized Health Care Education/Training Program
DX: G40.401 Other generalized epilepsy and epileptic syndromes, not intractable, with status epilepticus (principal); E87.2 Acidosis; D64.9 Anemia, unspecified; F79 Unspecified intellectual disabilities; T42.76XA Underdosing of unspecified antiepileptic and sedative-hypnotic drugs, initial encounter; Z91.138 Patient's unintentional underdosing of medication regimen for other reason
CPT/HCPCS: 99223-AI; 99231-AI; 99239; J1953; J7030; J7120

== ENCOUNTER 2021-04-14 14:06 | Emergency (ER) | payer MEDICARE, OTHER ==
[~2021-04-14] VITALS: Ht 165.1 cm; Wt 59.1 kg
[~2021-04-14 14:06] MED LIST changes: +CICLOPIROX TOP; +NIZORAL CREAM15 GM TP
[2021-04-14 14:49] LABS: HEMATOCRIT 37.8 % (42.0-52.0); HEMOGLOBIN 12.3 g/dl (13.5-18.0); MEAN CELL VOLUME 92 fl (80.0-100.0); MEAN CORPUSCULAR HEMOGLOBIN 30 pg (27-31); MEAN CORPUSCULAR HGB CONC 33 g/dl (33.0-37.0); MEAN PLATELET VOLUME 14.1 fl (7.4-10.4); PLATELET COUNT 161 K/mm3 (130-400); RED BLOOD COUNT 4.13 M/mm3 (4.20-5.60); REDCELL DISTRIBUTION WIDTH-CV 13.7 % (11.5-14.5)
[2021-04-14 15:09] LABS: ALBUMIN 3.9 gm/dL (3.5-5.0); BILIRUBIN,TOTAL 0.2 mg/dL (0.2-1.2); CALCIUM 8.8 mg/dL (8.4-10.2); CREATININE, serum 0.77 mg/dL (0.72-1.25); POTASSIUM 5.2 mmol/L (3.5-4.5); TOTAL PROTEIN 7.5 gm/dL (6.2-8.1)
[2021-04-14 15:12] LABS: LYMPHOCYTE 18 % (20.0-51.0); NEUTROPHILS 74 % (42.0-75.2)
[2021-04-14 15:13] LABS: PLATELET ESTIMATE NORMAL (NORMAL)
[2021-04-14 15:29] LABS: PROLACTIN 30.6 ng/mL (3.46-19.40)
--- NOTE | 2021-04-14 16:14 | NUR ---
bulb farmworker consulted due to frequent visits and recent discharge. Patient resides at [facility] [place]. Phone call made to patient's adult protective caseworker Emily ([phone]). Emily reports that she has been in the process of taking on a different case load and that his new adult protective caseworker's name is Lulu Worthington. Emily states that she has not heard of any behavioral issues or and incidents of the patient refusing to take his medications. Emily encouraged me to reach out to the director Debby ([phone]) to request a PCSP (person centered support plan) report on the patient. Attempt made to reach Debby and was unsuccessful. Bubbliil is not accepting messages at this time. Asked Emily if they were able to hold a family meeting as this was sceduled to happend when he discharged in February. Emily states that she is unaware if one has happened. Contact made to the patient's RN and given Emily's phone number. RN states they [facility] [place] for transportation and has been unsuccessful.
[2021-04-14 16:32] VITALS: BP 113/78; PULSE 90
== END 2021-04-14 16:40 | disposition home or self-care (01) ==
LOC: COL.ER 14:06
PROVIDERS: Physician Assistant
DX: G40.909 Epilepsy, unspecified, not intractable, without status epilepticus (principal); Z91.14 Patient's other noncompliance with medication regimen; Z79.899 Other long term (current) drug therapy
CPT/HCPCS: J1953; J7030

== ENCOUNTER 2021-08-06 12:01 | Inpatient (IN) | payer MEDICARE, OTHER ==
[~2021-08-06] VITALS: Wt 59.1 kg
[2021-08-06] VITALS (349 sets, daily range): BP systolic 103–120; BP diastolic 53–63; PULSE 102–113; TEMP 97.4–100.4; O2SAT 62–100
[2021-08-06 12:24] LABS: HEMATOCRIT 47.3 % (42.0-52.0); HEMOGLOBIN 14.3 g/dl (13.5-18.0); MEAN CELL VOLUME 101 fl (80.0-100.0); MEAN CORPUSCULAR HEMOGLOBIN 30 pg (27-31); MEAN CORPUSCULAR HGB CONC 30 g/dl (33.0-37.0); PLATELET COUNT 177 K/mm3 (130-400); REDCELL DISTRIBUTION WIDTH-CV 13.2 % (11.5-14.5)
[2021-08-06 12:36] LABS: BAND 1 % (0-10); LYMPHOCYTE 30 % (20.0-51.0); NEUTROPHILS 56 % (42.0-75.2); PLATELET ESTIMATE NORMAL (NORMAL)
[2021-08-06 12:42] LABS: BILIRUBIN,TOTAL 0.2 mg/dL (0.2-1.2); CALCIUM 10.6 mg/dL (8.4-10.2); CREATININE, serum 1.35 mg/dL (0.72-1.25); POTASSIUM 3.6 mmol/L (3.5-4.5); TOTAL PROTEIN 8.7 gm/dL (6.2-8.1)
--- NOTE | 2021-08-06 15:30 | NUR ---
PT BROUGHT TO MEDICAL FLOOR, AFTER PATIENT WAS TRANSFERRED TO MEDICAL FLOOR BED, THE PATIENT HAD 2 SEIZURES. FIRST SEIZURE LASTED 30 SECONDS, SECOND LASTED >1MINUTE. PT HAS CONTINUED TO HAVE ACTIVE SEIZURES SINCE ARRIVAL. THE DOCTOR HAS BEEN NOTIFIED OF SEIZURES AND HAS ORDERED 2MG ATIVAN, FLUIDS, SODIUM BICARB. PT IS UNRESPONSIVE, DOES NOT RESPOND TO VERBAL OR PAINFUL STIMULI AT THIS TIME. WILL CONTINUE TO MONITOR.
--- NOTE | 2021-08-06 16:28 | NUR ---
Patient resides at [facility]. He has had multiple admissions to this facility in the past. Rn notified me that she was informed by attendant with the patient that the patient has been out of his Keppra x5 days and his Trilepta x1 day because "his aid forgot to fill them". It was reported to RN that the attendant has witnessed multiple seizures over the past few days. Attempt made to KD[facility] to report incident and had to leave a message.
--- NOTE | 2021-08-06 16:36 | NUR ---
PT CONTINUALLY SEIZING. DISCUSSED WITH DR. BADILLO WHO IS GOING TO TRANSFER THE PATIENT TO ICU. THE PATIENT HAS BEEN GIVEN A TOTAL OF 5MG OF ATIVAN SINCE ARRIVAL TO THE MEDICAL FLOOR APPROXIMATELY 1 HOUR AGO. THE PATIENT'S SEIZURES START WITH BODY SHAKES, ARMS THEN WITHDRAWL UP TO CHEST, AND THEN PATIENT BEGINS TO GRIND TEETH AND GRUNT, PT REMAINS TACHYCARDIC. RESPIRATIONS ARE BETWEEN 35-40 AND SPO2 IS 97% ON RA AT THIS TIME. PATIENT IS NON RESPONSIVE TO VERBAL AND/OR PAINFUL STIMULI. PT REMAINS IN A CYCLICAL EPILEPTIC/POSTICTAL STATE. WILL REMAIN WITH PATIENT AT THIS TIME.
--- NOTE | 2021-08-06 17:15 | NUR ---
PT TRANSFERED TO ICU FROM THE MEDICAL UNIT FOR SEIZURES. PT IS STILL UNRESPONSIVE TO PAIN, VOICE, OR TOUCH. PT'S VSS. PT MAINTAING HIS AIRWAY AT THIS TIME. PUPILS ARE EQUAL AND REACTIVE. SEIZURE PADS PLACED. BEDSIDE. MEDS PRISCILLA. SUCTION SET UP. WILL CONTINUE TO [facility].
--- NOTE | 2021-08-06 17:15 | NUR ---
PT TAKEN TO ICU WHERE JENN KIRK ASSUMED CARE AT THIS TIME.
--- NOTE | 2021-08-06 20:00 | NUR ---
PATIENT REACTS TO VERBAL STIMULI BY SQEEZING EYES TIGHTLY CLOSED ALSO VISIBLE SHIVERING FAN TURNED OFF BLANKET APPLIED WILL CONTINUE TO RECHECK AND STIMULATE TO OBSERVE AWKENED/ UNKNOWN BASELINE OF DISABILITY
[2021-08-06 20:33] LABS: CALCIUM 9.7 mg/dL (8.4-10.2); CREATININE, serum 0.92 mg/dL (0.72-1.25); POTASSIUM 4.5 mmol/L (3.5-4.5)
--- NOTE | 2021-08-06 22:16 | NUR ---
PATIENT TAKEN TO CT SCAN BY STRETCHER, PATIENT ASLEEP AND ONLY VISIBLE SHOOK WHEN MOVED TO CT TABLE VITALS 109/48 102 22 100% RA, 2230 PATIENT [id number] TO ICU BED 8
[2021-08-07] VITALS (478 sets, daily range): BP systolic 92–128; BP diastolic 45–87; PULSE 87–115; TEMP 97.3–99.3; O2SAT 61–100
[2021-08-07 05:01] LABS: BASO # 0.1 K/mm3 (0.0-0.2); BASO % 0.5 % (0.0-2.0); GRAN # 10.2 K/mm3 (1.4-6.5); GRAN % 79.3 % (42.2-75.2); HEMATOCRIT 38.2 % (42.0-52.0); HEMOGLOBIN 12.8 g/dl (13.5-18.0); LYMPH # 1.3 K/mm3 (1.2-3.4); LYMPH % 9.7 % (20.0-51.0); MEAN CORPUSCULAR HEMOGLOBIN 31 pg (27-31); MEAN CORPUSCULAR HGB CONC 34 g/dl (33.0-37.0); MEAN PLATELET VOLUME 13.6 fl (7.4-10.4); MONO # 1.3 K/mm3 (0.1-0.6); MONO % 10.3 % (1.7-9.3); PLATELET COUNT 117 K/mm3 (130-400); REDCELL DISTRIBUTION WIDTH-CV 13.5 % (11.5-14.5)
[2021-08-07 05:02] LABS: MEAN CELL VOLUME 91 fl (80.0-100.0)
[2021-08-07 05:16] LABS: ALBUMIN 3.8 gm/dL (3.5-5.0); CALCIUM 8.9 mg/dL (8.4-10.2); CREATININE, serum 0.94 mg/dL (0.72-1.25); MAGNESIUM 1.9 mg/dL (1.6-2.6); PHOSPHOROUS 2.6 mg/dL (2.3-4.7)
--- NOTE | 2021-08-07 07:30 | NUR ---
Patient restless in bed; attempting to get up from bed multiple times. Patient is non-verbal so cannot express his needs to staff. Assisted up with two staff members to the bathroom but didn't need to go. After getting back into bed patient was incontinent of urine. Gave bed bath placed new sheets on the bed. Afterwards patient was still continuously attempting to get out of bed pulling on monitoring cords. Patient easily re-directed and does appear to be agitated or upset. Staff needing to be at bedside at all times at this point as patient continuously attempting to get up from bed and is unsteady on his feet. Staff also gave patient items to occupy his hands but this was ineffective. Bed alarm on and call light within reach.
--- NOTE | 2021-08-07 10:16 | NUR ---
Attempted to call [facility] to verify home med rec. Unable to reach anybody via telephone. Will attempt again later.
--- NOTE | 2021-08-07 11:00 | NUR ---
Attempted a second time to contact [facility] to verify the med rec. Left a voicemail. Awaiting a return call.
--- NOTE | 2021-08-07 12:50 | NUR ---
Transfered up to the medical floor via wheelchair. Patient alert and oriented per baseline and in no distress. Met receiving RN and THEATRE PROFESSOR in the room on medical floor.
--- NOTE | 2021-08-07 13:29 | NUR ---
Clinical Allergist consulted patient treatment team, noting patient is currently alert, but not fully oriented and only responding to some commands. He is a resident at [facility]. Francesca BARAJAS has attempted contact to [facility] and left . This Clinical Allergist attempted contact to patient legal guardian Melyssa ([phone]) and left requesting call back. Reviewed documentation notes Bhumika Clinical Allergist attempted contact to [facility] to report concern for patient facility, left . Clinical Allergist notes patient is at no risk of abuse, neglect or exploitation at this time as he has now been transferred to a medical bed and remains hospitalized for the time being. No contact to law enforcement indicated at this time. Clinical Allergist continues to await contact from legal guardian for intake assessment/discharge planning.
[2021-08-08 00:44] VITALS: BP 113/49; BP 130/49; PULSE 72; PULSE 86; TEMP 98.1; TEMP 98.4
[2021-08-08 03:35] VITALS: BP 125/55; PULSE 77; TEMP 97.7
--- NOTE | 2021-08-08 04:54 | NUR ---
ASSESSMENT COMPLETE FOR THIS SHIFT. PT A&O TO SELF. PT SHOWED NO SIGNS OR SYMPTOMS OF DISTRESS, DISCOMFORT, PAIN, N,V,D OR DIZZINESS. NO SEIZURES NOTED THIS SHIFT THUS FAR. NEURO CHECKS STABLE. WILL CONTINUE TO MONITOR PT TO ENSURE HIS NEEDS ARE MEET. CALL LIGHT WITHIN REACH.
[2021-08-08 07:41] VITALS: BP 113/46; PULSE 82; TEMP 98
--- NOTE | 2021-08-08 09:13 | NUR ---
PATIENT ALERT TO SELF. NO NEW CONCERNS. PATIENT STILL FIGHTS TO TAKE MEDICATION. ICE CREAM WITH MEDICATIONS IS THE BEST WAY. PATIENT SITTING UP EATING BREAKFAST.
[2021-08-08 11:44] VITALS: BP 97/40; PULSE 75; TEMP 98.1
[2021-08-08] MEDS ORDERED: DEPAKENE 250 MG/1 ML PO ×3 (13:36→13:37)
[2021-08-08] MEDS ORDERED: TRILEPTAL SU60 MG/ML PO ×2 (13:38)
[2021-08-08] MEDS ORDERED: KEPPRA SUSP100 MG/ML PO (13:39)
[2021-08-08] MEDS ORDERED: LORAINT PO (13:40)
[2021-08-08] MEDS ORDERED: ONFI2.5 MG/ML PO ×3 (13:40→14:49)
--- NOTE | 2021-08-08 13:47 | NUR ---
Bernardo spoke with DPOA- agent, sister, Melyssa VIA phone who informed me that her brother, the pt lives at [facility], [place]. She reports her sister, Norma is also a agent. Melyssa ph # [phone] and Norma ph# [phone]. She reports her brother needs help with dressing, but can feed himself. He does not use any DME. PCP is Archie Wilson and gets his medications through [facility]. Sister reports upset about the news of finding out that the med gabriel Carine had not given her brother medication for 5 days and she has never dealt with anything like this before. She reports she will be looking into finding a new placement for her [place]. BERNARDO asked Melyssa for the number for transportation to setup DC back to [facility] [place]. Melyssa informed she did not have any numbers but would text in a group and get the number. [employer] /transportation Garry [phone] was given to BERNARDO. Bernardo reach out to Garry to setup. Garry asked the SW if the doctor could make a prescriton for his medications. Bernardo informed her she would reach to the doctor and call back. Bernardo called Dr. Blum and Dr. Blum informed Sw that he could write the prescription and also he would not be DC today, because he was sleepy when he spoke with him. BERNARDO called Garry back and informed of the news and SW told her she would reach out if anything changes. BERNARDO spoke with pt nurse about Dr. Blum decision, nurse spoke with Dr. Blum and decided DC today would be okay. BERNARDO gave RN garry number. BERNARDO called Garry @ 2:03 PM and she informed BERNARDO that her supervisior and Dr. Blum will be communcating to decided on medications and DC. SW to await further recommendations and follow up later.
--- NOTE | 2021-08-10 16:16 | NUR ---
Report filed with [facility]. APS report file as this patient is a dependent adult. Case #[id number]
== END 2021-08-08 16:37 | DRG 100 ==
LOC: COL.ER 12:01 → MEDICAL 14:48 → ICU 16:28 → MEDICAL 08-07 13:00
PROVIDERS: Personal Emergency Response Attendant; Student in an Organized Health Care Education/Training Program; ADMIT Internal Medicine
DX: G40.901 Epilepsy, unspecified, not intractable, with status epilepticus (principal); J96.01 Acute respiratory failure with hypoxia; F79 Unspecified intellectual disabilities; Z91.14 Patient's other noncompliance with medication regimen
CPT/HCPCS: 99223-AI; 99233-AI; 99239; J1953; J2060; J7030; Q2009

== ENCOUNTER 2021-08-13 17:49 | Emergency (ER) | payer MEDICARE, OTHER ==
[~2021-08-13] VITALS: Ht 162.6 cm; Wt 50.0 kg
[2021-08-13 18:05] VITALS: TEMP 97.8
[2021-08-13 18:55] VITALS: BP 131/69; PULSE 92
== END 2021-08-13 18:59 ==
LOC: COL.ER 17:49
DX: E86.0 Dehydration (principal)

== ENCOUNTER 2021-10-24 13:53 | Emergency (ER) | payer MEDICARE, OTHER ==
[~2021-10-24] VITALS: Ht 167.6 cm; Wt 68.2 kg
[2021-10-24 13:58] VITALS: BP 108/50; PULSE 87; TEMP 98.6
[2021-10-24] MEDS ORDERED: DEPAKOTE 125MG125 MG PO (15:16)
== END 2021-10-24 16:05 | disposition home or self-care (01) ==
LOC: COL.ER 13:53
DX: U07.1 COVID-19 (principal); Z28.310 Unvaccinated for COVID-19

== ENCOUNTER 2022-03-14 03:18 | Emergency (ER) | payer MEDICARE, OTHER ==
[~2022-03-14] VITALS: Ht 172.7 cm; Wt 54.5 kg
[~2022-03-14 03:18] MED LIST changes: +DEPAKOTE 125MG125 MG PO
[2022-03-14 03:19] VITALS: TEMP 101.9
[2022-03-14 03:41] LABS: HEMATOCRIT 45.3 % (42.0-52.0); HEMOGLOBIN 14.3 g/dl (13.5-18.0); MEAN CELL VOLUME 97 fl (80.0-100.0); MEAN CORPUSCULAR HEMOGLOBIN 31 pg (27-31); MEAN CORPUSCULAR HGB CONC 32 g/dl (33.0-37.0); MEAN PLATELET VOLUME 13.3 fl (7.4-10.4); PLATELET COUNT 200 K/mm3 (130-400); RED BLOOD COUNT 4.65 M/mm3 (4.20-5.60); REDCELL DISTRIBUTION WIDTH-CV 13.5 % (11.5-14.5)
[2022-03-14 03:46] LABS: ARTERIAL BLD GAS O2 SATURATION 97.8 % (92-100); ARTERIAL BLD GAS TCO2 CT 14.7; ARTERIAL BLOOD GAS BASE EXCESS -14.1 (-2-2); ARTERIAL BLOOD GAS HCO3 13.6 meq/L (22-26); ARTERIAL BLOOD GAS PCO2 37.8 mmHg (35-45)
[2022-03-14 03:47] LABS: ARTERIAL BLOOD GAS pH 7.17 (7.35-7.45)
[2022-03-14 03:48] LABS: ARTERIAL BLOOD GAS PO2 126.8 mmHg (80-100)
[2022-03-14 03:56] LABS: ALBUMIN 4.9 gm/dL (3.5-5.0); BAND 2 % (0-10); BASOPHIL 1 % (0-2); BILIRUBIN,TOTAL 0.2 mg/dL (0.2-1.2); CALCIUM 9.8 mg/dL (8.4-10.2); CREATININE, serum 1.52 mg/dL (0.72-1.25); HYPOCHROMIA 2+; LYMPHOCYTE 5 % (20.0-51.0); NEUTROPHILS 83 % (42.0-75.2); PLATELET ESTIMATE NORMAL (NORMAL); POTASSIUM 4.5 mmol/L (3.5-4.5); TOTAL PROTEIN 8.8 gm/dL (6.2-8.1)
--- NOTE | 2022-03-14 05:13 | NUR ---
PT INTUBATED AT 0427 WITH 7.5 ETT WITHOUT COMPLICATIONS. PLACED ON VENTILATOR PER CHARTED SETTINGS AND VERIFIED SETTINGS WITH DR TREJO. ETT CONFIRMED WITH C02 DETECTOR AND X-RAY.
[2022-03-14 06:10] VITALS: BP 98/50; PULSE 98
== END 2022-03-14 06:10 | disposition short-term general hospital (02) ==
LOC: COL.ER 03:18
PROVIDERS: Family Medicine
DX: G40.401 Other generalized epilepsy and epileptic syndromes, not intractable, with status epilepticus (principal); Z20.822 Contact with and (suspected) exposure to COVID-19; Z28.310 Unvaccinated for COVID-19
CPT/HCPCS: J0696; J1953; J2060; J2250; J2704; J7060; J7120; Q2009